=== PATIENT | female | born 1965 | race Asian ===

== ENCOUNTER 2018-04-09 08:35 | Day surgery (SDC) | payer MEDICARE, MEDICAID ==
[~2018-04-09] VITALS: Ht 147.3 cm; Wt 94.5 kg
[2018-04-09] MEDS ORDERED: normal saline 1000ml 1,000 ML IV PRN (08:55)
[2018-04-09 09:13] VITALS: BP 182/77
[2018-04-09] MEDS ORDERED: FOLI1TAB16 PO (09:13)
[2018-04-09] MEDS ORDERED: ONDA4TAB6 PO (09:13)
[2018-04-09] MEDS ORDERED: ASPI-1094 PO (09:13)
[2018-04-09] MEDS ORDERED: ROSU10TA PO (09:13)
[2018-04-09] MEDS ORDERED: LEVO50TA8 PO (09:13)
[2018-04-09] MEDS ORDERED: HYDR100T27 PO (09:13)
[2018-04-09] MEDS ORDERED: OMEP40CA37 PO (09:13)
[2018-04-09] MEDS ORDERED: RANI150T8 PO (09:13)
[2018-04-09] MEDS ORDERED: LOSA100T3 PO (09:13)
[2018-04-09] MEDS ORDERED: CAL1TABL2 PO (09:13)
[2018-04-09] MEDS ORDERED: TRAM50TA2 PO (09:13)
[2018-04-09] MEDS ORDERED: NIFE90TA44 PO (09:13)
[2018-04-09] MEDS ORDERED: CITA20TA19 PO (09:13)
[2018-04-09 09:15] LABS: EOSINOPHILS # (AUTO) 0.5 X10'3 (0-0.9); WHITE BLOOD COUNT 5.4 X10'3 (4.5-11.0)
[2018-04-09 09:23] LABS: BASOPHILS % (AUTO) 0.2 % (0-1); EOSINOPHILS % (AUTO) 9.4 % (0-6); HEMATOCRIT 39.3 % (35.0-45.0); HEMOGLOBIN 12.8 g/dl (12.0-16.0); LYMPHOCYTES # (AUTO) 1.5 X10'3 (1.1-4.8); LYMPHOCYTES % (AUTO) 28.1 % (21-51); MEAN CORPUSCULAR HEMOGLOBIN 31.7 PG (27.0-31.0); MEAN CORPUSCULAR HGB CONC 32.6 % (33.0-36.5); MEAN CORPUSCULAR VOLUME 97.2 FL (78-98); MEAN PLATELET VOLUME 9.1 FL (7.4-10.4); MONOCYTES # (AUTO) 0.5 X10'3 (0-0.9); MONOCYTES % (AUTO) 9.7 % (2-12); NEUTROPHILS # (AUTO) 2.8 X10'3 (1.8-7.7); NEUTROPHILS % (AUTO) 52.6 % (42-75); PLATELET COUNT 196 X10'3 (140-440); RED BLOOD COUNT 4.04 X10'6 (4.20-5.60); RED CELL DISTRIBUTION WIDTH 15.2 % (11.5-14.5)
[2018-04-09] MEDS ORDERED: iohexol 300mg/ml 100ml inj. ONE (10:18)
[2018-04-09] MEDS ORDERED: LIDOcaine 1%/PF 5ML 10 MG/ML VIAL ONE (10:18)
[2018-04-09] MEDS ORDERED: LIDOcaine 1%/PF 5ML 10 MG/ML VIAL SQ ONE (10:20)
[2018-04-09] MEDS ORDERED: midazolam 2 mg/2 ml injection IV PRN (10:20)
[2018-04-09] MEDS ORDERED: fentaNYL/PF 50MCG/1 ML 2ML syringe IV PRN (10:20)
[2018-04-09] MEDS ORDERED: midazolam 2 mg/2 ml injection ONE (10:32)
[2018-04-09] MEDS ORDERED: heparin 1,000 UNITS/NS 500ml 500 ML ONE (10:33)
[2018-04-09] MEDS ORDERED: fentaNYL/PF 50MCG/1 ML 2ML syringe ONE (10:33)
[2018-04-09] MEDS ORDERED: hydrALAZINE 20mg/ml inj. IV ONE ×2 (11:01→11:05)
[2018-04-09 11:26] VITALS: BP 149/74
[2018-04-09 11:30] VITALS: BP 164/81
[2018-04-09 11:45] VITALS: BP 162/73
[2018-04-09 12:00] VITALS: BP 152/73
[2018-04-09 12:15] VITALS: BP 142/59
== END 2018-04-09 12:30 | disposition home or self-care (01) ==
LOC: SSTAY O 08:35
PROVIDERS: ATTEND Radiology Diagnostic Radiology
DX: T82.858A Stenosis of other vascular prosthetic devices, implants and grafts, initial encounter (principal); I25.10 Atherosclerotic heart disease of native coronary artery without angina pectoris; E11.22 Type 2 diabetes mellitus with diabetic chronic kidney disease; I13.2 Hypertensive heart and chronic kidney disease with heart failure and with stage 5 chronic kidney disease, or end stage renal disease; N18.6 End stage renal disease; I50.9 Heart failure, unspecified; E03.9 Hypothyroidism, unspecified; E78.5 Hyperlipidemia, unspecified; Z86.74 Personal history of sudden cardiac arrest; Z87.11 Personal history of peptic ulcer disease; Z90.49 Acquired absence of other specified parts of digestive tract; Z99.2 Dependence on renal dialysis; Z95.1 Presence of aortocoronary bypass graft; Z79.82 Long term (current) use of aspirin; Z79.891 Long term (current) use of opiate analgesic; Z98.890 Other specified postprocedural states; Z79.899 Other long term (current) drug therapy
CPT/HCPCS: 36415; 36901; 85025; 99152; 99153; C1769; C1894; J0360; J1644; J2001; J2250; J3010; J7030; Q9967; A4620